=== PATIENT | male | born 1955 | race Caucasian/White ===

== ENCOUNTER 2016-12-25 21:36 | Emergency (ER) | payer OTHER ==
[2016-12-25] MEDS ORDERED: METOPROLOL TARTRATE 5 MG/5 ML VIAL IVPUSH ONE (21:42)
[2016-12-25] MEDS ORDERED: CLOPIDOGREL BISULFATE 300 MG TABLET PO ONE (21:42)
[2016-12-25] MEDS ORDERED: ASPIRIN 81 MG CHEWABLE TABLETS PO ONE (21:42)
--- NOTE | 2016-12-25 21:43 | PDOC ---
History of Present Illness - General History Source: Patient <Сергей Gamble - Last Filed: 12/25/16 22:11> - General History Source: Patient Exam Limitations: No Limitations - History of Present Illness Initial Comments: 12/25/16 22:03 61 yr old male, with significant past medical history of HTN (on metoprolol), s/ p 2 cardiac stents, who presents to the emergency room complaining of a sudden onset of midsternal chest pain that initially radiated to his shoulders bilaterally. He describes the pain as sharp, 7/10 in severity, and started when he was having a conversation 30 minutes prior to presentation to the emergency room. Denies recent travel, recent illness. Denies fever, chills, nausea, vomiting. Denies lightheadedness, dizziness. Denies cough. Allergies: NKDA Social Hx: Former cigarette use, pt states that now he uses a vape(electronic cigarette). Denies other recreational drug use. PCP: No affiliation Armament Mechanic: Dr. Corado <Willow Wooten - Last Filed: 12/25/16 22:55> - General Stated Complaint: CHEST PAIN Time Seen by Provider: 12/25/16 21:42 Past History <Maria C Gamblean - Last Filed: 12/25/16 22:11> <Willow Wooten - Last Filed: 12/25/16 22:55> - Past Medical History Allergies/Adverse Reactions: Allergies Allergy/AdvReac Type Severity Reaction Status Date / Time No Known Allergies Allergy Verified 12/25/16 21:45 Home Medications: Ambulatory Orders Metoprolol Succinate [Toprol Xl] 50 mg PO BID 12/25/16 Tamsulosin HCl [Flomax] 0.4 mg PO DAILY 12/25/16 Review of Systems - Review of Systems Able to Perform ROS?: Yes Comments:: 12/25/16 22:03 CONSTITUTIONAL: Present: diaphoresis Absent: fever, chills, generalized weakness, malaise, loss of appetite HEENT: Absent: rhinorrhea, nasal congestion, throat pain, throat swelling, difficulty swallowing, mouth swelling, ear pain, eye pain, visual Changes CARDIOVASCULAR: Present: chest pain. Absent: syncope, palpitations, irregular heart rate, lightheadedness, peripheral edema RESPIRATORY: Absent: cough, shortness of breath, dyspnea with exertion, orthopnea, wheezing, stridor, hemoptysis GASTROINTESTINAL: Absent: abdominal pain, abdominal distension, nausea, vomiting, diarrhea, constipation, melena, hematochezia GENITOURINARY: Absent: dysuria, frequency, urgency, hesitancy, hematuria, flank pain, genital pain MUSCULOSKELETAL: Absent: myalgia, arthralgia, joint swelling SKIN: Absent: rash, itching, pallor HEMATOLOGIC/IMMUNOLOGIC: Absent: easy bleeding, easy bruising, lymphadenopathy, frequent infections ENDOCRINE: Absent: unexplained weight gain, unexplained weight loss, heat intolerance, cold intolerance NEUROLOGIC: Absent: headache, focal weakness or paresthesias, dizziness, unsteady gait, seizure, mental status changes, bladder or bowel incontinence PSYCHIATRIC: Absent: anxiety, depression, suicidal or homicidal ideation, hallucinations. <Willow Wooten - Last Filed: 12/25/16 22:55> *Physical Exam - Vital Signs Last Vital Signs Temp Pulse Resp BP Pulse Ox 97.8 F 85 22 146/75 99 12/25/16 21:43 12/25/16 21:43 12/25/16 21:43 12/25/16 21:43 12/25/16 21:43 - Physical Exam Comments: 12/25/16 22:04 GENERAL: Well developed, well nourished. Awake and alert. In no acute distress. HEENT: Normocephalic, atraumatic. PERRLA, EOMI. No conjunctival pallor. Sclerae are non -icteric. Moist mucous membranes. Oropharynx is clear. NECK: Supple. Full ROM. No JVD. Carotid pulses 2+ and symmetric, without bruits. No thyromegaly. No lymphadenopathy. CARDIOVASCULAR: Regular rate and rhythm. No murmurs, rubs, or gallops. Distal pulses are 2+ and symmetric. PULMONARY: No evidence of respiratory distress. Lungs clear to auscultation bilaterally. No wheezing, rales or rhonchi. ABDOMINAL: Soft. Non-tender. Non-distended. No rebound or guarding. No organomegaly. Normoactive bowel sounds. MUSCULOSKELETAL Normal range of motion at all joints. No bony deformities or tenderness. No CVA tenderness. EXTREMITIES: No cyanosis. No clubbing. No edema. No calf tenderness. SKIN: Warm and dry. Normal capillary refill. No rashes. No jaundice. NEUROLOGICAL: Alert, awake, appropriate. Cranial nerves 2-12 intact. No deficits to light touch and temperature in face, upper extremities and lower extremities. No motor deficits in the in face, upper extremities and lower extremities. Normoreflexic in the upper and lower extremities. Normal speech. Toes are downgoing bilaterally. Gait is normal without ataxia. PSYCHIATRIC: Cooperative. Good eye contact. Appropriate mood and affect. <Willow Wooten - Last Filed: 12/25/16 22:55> Heart Score/ECG Review - History History: Highly suspicious - Electrocardiogram EKG: Significant ST-depression - Age Age: 45-65 - Risk Factors Risk Factors Heart Score: Yes Hx Hypertension, Yes Smoking History Based on the list above the patient has:: >/=3 risk factors or Hx atherosclerotic disease - Troponin Troponin: </= normal limit - Score Heart Score - Total: 7 #1 12/25/16 22:27 Segment elevations in v2 v3 Depressions in 1 and aVL <Willow Wooten - Last Filed: 12/25/16 22:55> ED Treatment Course - LABORATORY CBC & Chemistry Diagram: 12/25/16 21:46 12/25/16 21:46 <Сергей Gamble - Last Filed: 12/25/16 22:11> - LABORATORY CBC & Chemistry Diagram: 12/25/16 21:46 12/25/16 21:46 - RADIOLOGY Radiograph Interpretation: 12/25/16 22:55 EXAM#: TYPE/EXAM: RESULT: [id number] RAD/CHEST X-RAY PORTABLE* Rule out infiltrate. Portable chest x ray, AP upright A frontal view of the chest was obtained. No prior is available for comparison The cardiac silhouette is within normal limits in size. The lung is clear. Mediastinum and visualized osseous structures appear intact . Impression: Unremarkable examination. Reported By: Juan Pablo Mendez MD 12/25/16 [id number] <Willow Wooten - Last Filed: 12/25/16 22:55> Medical Decision Making - Medical Decision Making 12/25/16 22:11 Dr. Gamble: The scribe's documentation has been prepared under my direction and personally reviewed by me in its entirery. I confirm that the note above accurately reflects all work, treatment, procedures, and medical decision making performed by me. <Сергей Gamble - Last Filed: 12/25/16 22:11> - Medical Decision Making 12/25/16 22:04 Called [facility] transfer center at 9:50pm. tree specialist, Dr. Bagley, called back at 9:56pm Dr. Peoples at the [facility] laborer general called back at 10:00pm. <Willow Wooten - Last Filed: 12/25/16 22:55> *DC/Admit/Observation/Transfer - Discharge Dispostion Admit: No - Transfer to Acute Care Facility Receiving Facility: [facility] (lab support technician) Accepting Physician:: Dr. Peoples, Dr. Bagley <Сергей Gamble - Last Filed: 12/25/16 22:11> - Attestations Scribe Attestion: 12/25/16 22:04 Documentation prepared by GINI Pretty, acting as medical photographer for Сергей Gamble MD. <Willow Wooten - Last Filed: 12/25/16 22:55> Diagnosis at time of Disposition: STEMI (ST elevation myocardial infarction) - Discharge Dispostion Disposition: TRANSFER ACUTE CARE/OTHER HOSP Condition at time of disposition: Stable
[2016-12-25] MEDS ORDERED: morphine CARPU-JECT 2 MG/1 ML DISP.SYRIN IVPUSH ONE ×2 (21:47→22:06)
[2016-12-25] MEDS ORDERED: ASPIRIN 81 MG CHEWABLE TABLETS ONE (21:54)
[2016-12-25] MEDS ORDERED: METOPROLOL TARTRATE 5 MG/5 ML VIAL ONE (21:55)
[2016-12-25] MEDS ORDERED: CLOPIDOGREL BISULFATE 300 MG TABLET ONE (21:55)
[2016-12-25] MEDS ORDERED: morphine CARPU-JECT 10 MG/1 ML DISP.SYRIN ONE ×2 (21:55→22:12)
[2016-12-25] MEDS ORDERED: HEPARIN NA (PORCINE) 5,000 UNITS/ML 1ML VIAL IVPUSH PRN (22:08)
[2016-12-25 22:12] VITALS: BMI 28.3
[2016-12-25 22:17] LABS: BASOPHIL 0.7 % (0-2.0); EOSINOPHIL 1.4 % (0-4.5); MCH 29.8 pg (25.7-33.7); MCHC 34.2 g/dl (32.0-35.9); MEAN CELL VOLUME 87.1 fl (80-96); MEAN PLT VOLUME 8.2 fl (7.5-11.1); NEUTROPHILS 47.7 % (42.8-82.8); PLATELET COUNT 190 K/MM3 (134-434); RDW 13.5 % (11.9-15.9); WHITE BLOOD COUNT 6.5 K/mm3 (4.0-10.0)
[2016-12-25] MEDS ORDERED: HEPARIN NA (PORCINE) 5,000 UNITS/ML 1ML VIAL ONE (22:27)
[2016-12-25 22:30] LABS: INR 1.05 (0.82-1.09); PROTHROMBIN TIME (PATIENT) 11.5 SEC (9.98-11.88)
[2016-12-25 22:41] LABS: ANION GAP 8 (8-16); BILIRUBIN,TOTAL 0.3 mg/dL (0.2-1.0); CALCIUM 8.5 mg/dL (8.5-10.1); CO2 26 mmol/L (21-32); CREATININE 1.4 mg/dL (0.7-1.3); GLUCOSE,RANDOM 163 mg/dL (74-106); SGOT/AST 20 U/L (15-37); SGPT/ALT 35 U/L (12-78); TOT PROT 6.9 g/dl (6.4-8.2)
[2016-12-25 22:44] LABS: ALK PHOS 64 U/L (45-117); CPK 122 IU/L (39-308); TROPONIN I < 0.02 ng/ml (0.00-0.05)
[2016-12-26 04:32] VITALS: BP 163/76; PULSE 81; TEMP 98.3
--- NOTE | 2016-12-26 10:54 | EKG ---
Test Reason : Blood Pressure : / mmHG Vent. Rate : 071 BPM Atrial Rate : 071 BPM P-R Int : 140 ms QRS Dur : 096 ms QT Int : 376 ms P-R-T Axes : 033 037 112 degrees QTc Int : 408 ms NORMAL SINUS RHYTHM INFERIOR INFARCT , POSSIBLY ACUTE T WAVE ABNORMALITY, CONSIDER LATERAL ISCHEMIA ACUTE UT / STEMI Consider right ventricular involvement in acute inferior infarct ABNORMAL ECG NO PREVIOUS ECGS AVAILABLE Confirmed by IVETTE POSADA, MARCO ([id number]) on 12/26/2016 10:54:18 AM Referred By: Confirmed By:MARCO STEELE MD
== END 2016-12-25 22:32 | disposition short-term general hospital (02) ==
LOC: JER 21:36
PROC: 3E033GC Introduction of Other Therapeutic Substance into Peripheral Vein, Percutaneous Approach (ICD-10-PCS; principal; 2016-12-25)
PROC: 3E033NZ Introduction of Analgesics, Hypnotics, Sedatives into Peripheral Vein, Percutaneous Approach (ICD-10-PCS; 2016-12-25)
DX: I21.3 ST elevation (STEMI) myocardial infarction of unspecified site (principal); I10 Essential (primary) hypertension; Z95.5 Presence of coronary angioplasty implant and graft
CPT/HCPCS: 36415; 71010-TC; 80053; 82550; 83735; 84484; 85025; 85610; 93005; 93010; 99285-25; J1644